=== PATIENT | male | born 1955 | race Two or more races ===

== ENCOUNTER 2016-10-16 08:21 | Observation (INO) | payer MEDICARE, OTHER ==
[~2016-10-16] VITALS: Ht 167.6 cm; Wt 81.6 kg
[2016-10-16 08:56] LABS: Urine Bilirubin Negative (Negative); Urine Blood Negative /uL (Negative); Urine Color Yellow (Yellow); Urine Glucose Normal (Normal); Urine Ketone Negative (Negative); Urine Nitrite Negative (Negative); Urine RBC <1 /hpf (0 - 3); Urine Urobilinogen Normal (Negative)
[2016-10-16 09:25] LABS: Basophils # (auto) 0.1 uL; Basophils % (auto) 0.9 % (0.0-2.0); CONDITION Y; Eosinophils # (auto) 0.1 uL; Eosinophils % (auto) 1.1 % (0.0-7.0); Hematocrit 47.5 % (41.0-53.0); Hemoglobin 16.4 g/dL (13.5-17.5); Lymphocytes % (auto) 29.2 % (10.0-50.0); Mean Corpuscular Hemoglobin 32.5 pg (28.0-32.0); Mean Corpuscular Hgb Conc. 34.6 g/dL (32.0-36.0); Mean Corpuscular Volume 94.1 fL (80.0-100.0); Mean Platelet Volume 10.3 fL (7.4-10.4); Monocytes # (auto) 0.5 uL; Neutrophils # (auto) 4.1 uL; Neutrophils % (auto) 60.8 % (37.0-80.0); Platelet Count (auto) 223 10^3/uL (140-450); Red Cell Distribution Width 13.7 % (11.6-16.0); White Blood Cell 6.7 10^3/uL (4.4-10.8)
[2016-10-16 09:53] LABS: Albumin 3.9 g/dL (3.4-5.0); Alkaline Phosphatase 101 U/L (45-117); Anion Gap 8 (5-15); Aspartate Aminotransferase 37 U/L (15-37); BUN/Creatinine Ratio 21.7; Bilirubin, Total 0.5 mg/dL (0.2-1.0); Blood Urea Nitrogen 20 mg/dL (7-18); Carbon Dioxide 25 mmol/L (21-32); Chloride 103 mmol/L (98-107); GFR African American 107 mL/min; GFR Non-African American 88 mL/min; Glucose 127 mg/dL (74-106); Magnesium 2.6 mg/dL (1.6-2.6); Potassium 3.8 mmol/L (3.5-5.1); Sodium 136 mmol/L (136-145); Total Protein 8.1 g/dL (6.4-8.2)
[2016-10-16] MEDS ORDERED: SODIUM CHLORIDE 0.9% 1,000 ML IVB ONE (10:59)
[2016-10-16] MEDS ORDERED: ONDANSETRON HCL 4 MG/2 ML VIAL ONE (11:56)
[2016-10-16 12:06] LABS: INR 0.96 (0.9-1.15); Partial Thromboplastin Time 27.1 sec (22.64-33.71); Prothrombin Time 10.5 sec (9.37-12.3)
[2016-10-16 12:22] LABS: Magnesium 2.5 mg/dL (1.6-2.6)
[2016-10-16 13:37] VITALS: BP 149/84
[2016-10-16] MEDS ORDERED: ASPirin 81 mg TAB PO ONE (14:15)
== END 2016-10-16 14:53 | disposition home or self-care (01) | DRG 69 ==
LOC: ER 08:33 → OVERFLOW 11:01 → ER 17:39
PROVIDERS: ADMIT Family Medicine; ATTEND Family Medicine
DX: G45.9 Transient cerebral ischemic attack, unspecified (principal); R20.0 Anesthesia of skin; I10 Essential (primary) hypertension; D89.9 Disorder involving the immune mechanism, unspecified; Z82.49 Family history of ischemic heart disease and other diseases of the circulatory system
CPT/HCPCS: 36415; 70450; 71010; 80053; 81001; 82962; 83735; 84484; 85025; 85610; 85730; 93005; 96360; 99285; G0378; J2405